=== PATIENT | female | born 1995 | race Caucasian/White ===

== ENCOUNTER 2018-11-03 20:17 | Emergency (ER) | payer OTHER ==
[2018-11-03 20:32] VITALS: BP 150/71
--- NOTE | 2018-11-03 21:01 | UC ---
UC General HPI - HPI Summary HPI Summary: 23-year-old woman comes in with a chief complaint of pelvic cramping and her. Being late. Patient's last period was more than 28 days ago it's perhaps around 33 days. Her periods are irregular. No plan of any vaginal bleeding or abnormal vaginal discharge. No fevers or chills. She gets pelvic cramping on both sides that comes and goes. Patient has a history of ovarian cyst and states she often gets this cramping. She indicates is the typical intensity of pain. Does not feel lightheaded. No dysuria. At home she took some urine test 2 were positive one was negative. - History of Current Complaint Chief Complaint: UCGU Stated Complaint: TEST Time Seen by Provider: 11/03/18 20:34 Hx Last Menstrual Period: 10/01/18 Pain Intensity: 0 - Allergy/Home Medications Allergies/Adverse Reactions: Allergies Allergy/AdvReac Type Severity Reaction Status Date / Time azithromycin [From Zithromax] Allergy Rash Verified 11/03/18 20:24 Home Medications: Home Medications NK [No Home Medications Reported] 11/03/18 [History Confirmed 11/03/18] PMH/Surg Hx/FS Hx/Imm Hx Previously Healthy: Yes - Surgical History Surgical History: Yes Surgery Procedure, Year, and Place: T & A 2001 - Family History Known Family History: Positive: None Negative: Cardiac Disease, Hypertension, Diabetes - Social History Alcohol Use: None Substance Use Type: None Smoking Status (MU): Never Smoked Tobacco - Immunization History Most Recent Influenza Vaccination: none Vaccination Up to Date: Yes Review of Systems All Other Systems Reviewed And Are Negative: Yes Constitutional: Positive: Negative Skin: Positive: Negative Eyes: Positive: Negative ENT: Positive: Negative Respiratory: Positive: Negative Cardiovascular: Positive: Negative Gastrointestinal: Positive: Abdominal Pain Genitourinary: Positive: Negative Motor: Positive: Negative Neurovascular: Positive: Negative Musculoskeletal: Positive: Negative Neurological: Positive: Negative Psychological: Positive: Negative Is Patient Immunocompromised?: No Physical Exam Triage Information Reviewed: Yes Appearance: Well-Appearing, No Pain Distress, Well-Nourished Vital Signs: Initial Vital Signs Temp 98.6 F 11/03/18 20:28 Pulse 93 11/03/18 20:28 Resp 16 11/03/18 20:28 BP 150/71 11/03/18 20:28 Pulse Ox 99 11/03/18 20:28 Vital Signs Reviewed: Yes Eye Exam: Normal Eyes: Positive: Conjunctiva Clear Neck: Positive: Supple Respiratory: Positive: Lungs clear, Normal breath sounds, No respiratory distress Cardiovascular: Positive: RRR Abdomen Description: Positive: Nontender, Soft Bowel Sounds: Positive: Present Musculoskeletal Exam: Normal Musculoskeletal: Positive: Strength Intact, ROM Intact Neurological Exam: Normal Neurological: Positive: Alert, Muscle Tone Normal Psychological Exam: Normal Psychological: Positive: Age Appropriate Behavior Skin Exam: Normal Course/Dx - Course Course Of Treatment: test in clinic was negative. Patient describes her pelvic pain is cramping and intermittent. We discussed causes of pelvic pain and that if her pain increased or persistent or she felt ill she needs to get that reevaluated right away. - Diagnoses Provider Diagnosis: Encounter for test with result negative, Pelvic pain Discharge - Sign-Out/Discharge Documenting (check all that apply): Patient Departure All imaging exams completed and their final reports reviewed: No Studies - Discharge Plan Condition: Stable Disposition: HOME Patient Education Materials: Pelvic Pain in Women (ED) Referrals: Elmer Marcano MD [Primary Care Provider] - Additional Instructions: FOLLOW UP WITH YOUR DOCTOR IF NOT COMPLETELY IMPROVED. GO TO THE EMERGENCY DEPARTMENT IF YOUR CONDITION WORSENS; PELVIC PAIN, FEVER, YOU FEEL ILL OR ANY QUESTIONS OR CONCERNS. - Billing Disposition and Condition Condition: STABLE Disposition: Home
== END 2018-11-03 21:05 | disposition home or self-care (01) ==
LOC: UCCORT 20:17
DX: Z32.02 Encounter for pregnancy test, result negative (principal); R10.2 Pelvic and perineal pain
CPT/HCPCS: 84702; 99211; G0463